=== PATIENT | male | born 1965 | race Caucasian/White ===

== ENCOUNTER → 2017-10-25 | Outpatient (REF) | payer OTHER ==
[2017-10-25 15:48] LABS: BASO % 0.5 % (0.0-1.0); EOS # 0.3 10^3/uL (0.0-0.50); EOS % 4.1 % (0.0-3.0); HEMATOCRIT 44.9 % (42.0-52.0); HEMOGLOBIN 15.2 g/dl (13.5-17.5); IMMATURE GRANULOCYTE % 0.8 % (0-3.0); LYMPH # 2.7 10^3/uL (1.5-4.5); LYMPH % 36.1 % (24.0-44.0); MEAN CORPUSCULAR HEMOGLOBIN 31.6 pg (27.0-33.0); MEAN CORPUSCULAR HGB CONC 33.9 g/dl (32.0-36.5); MEAN CORPUSCULAR VOLUME 93.3 fl (80.0-96.0); MONO # 0.5 10^3/uL (0.0-0.8); MONO % 6.9 % (0.0-5.0); NEUTROPHILS # 3.8 10^3/uL (1.8-7.7); NEUTROPHILS % 51.6 % (36.0-66.0); PLATELET COUNT, AUTOMATED 316 10^3/uL (150-450); RED BLOOD COUNT 4.81 10^6/uL (4.30-6.10); RED CELL DISTRIBUTION WIDTH 12.1 % (11.5-14.5); WHITE BLOOD COUNT 7.4 10^3/uL (4.0-10.0)
[2017-10-25 15:58] LABS: C REACTIVE PROTEIN QUANTITATIV 1.16 MG/DL (0.00-0.30)
[2017-10-25 15:58] LABS: RHEUMATOID FACTOR QUANT < 10.0 IU/ML (<15.0)
[2017-10-25 16:37] LABS: ERYTHROCYTE SEDIMENTATION RATE 7 mm/hr (0-20)
[2017-10-28 00:07] LABS: ANTINUCLEAR ANTIBODIES DIRECT Negative (Negative); Lyme Disease IgG/IgM Antibodie <0.91 ISR (0.00-0.90); Lyme Disease IgM Ab Quantitati <0.80 index (0.00-0.79)
== END ==
LOC: M LABDRAW1 13:27
DX: M25.552 Pain in left hip (principal)
CPT/HCPCS: 86140

== ENCOUNTER 2020-06-08 19:45 | Emergency (ER) | payer OTHER, BC ==
[~2020-06-08] VITALS: Ht 180.3 cm; Wt 100.0 kg
[~2020-06-08 19:45] MED LIST: BACL10TA2 PO; BENI20TA11 PO; NAPR250T PO; NEUR100C PO; NEXI20GR PO; PAXI10TA; PAXI10TA PO; TRAZ50TA PO
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
[2020-06-08] MEDS ORDERED: TRAZ1TAB14 (20:54)
[2020-06-08] MEDS ORDERED: ASPI81TA26 (20:54)
[2020-06-08] MEDS ORDERED: HYDR25TAB (20:54)
[2020-06-08] MEDS ORDERED: GLYB25TA (20:54)
[2020-06-08] MEDS ORDERED: OMEP-221 (20:54)
[2020-06-08] MEDS ORDERED: ATOR80TA59 (20:54)
[2020-06-08] MEDS ORDERED: PARO20TA3 (20:54)
[2020-06-08] MEDS ORDERED: METF10004 (20:54)
[2020-06-08] MEDS ORDERED: ISOS30TA4 (20:54)
[2020-06-08] MEDS ORDERED: PARO30TA4 (20:54)
[2020-06-08] MEDS ORDERED: INVO300T (20:54)
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
[2020-06-08] MEDS ORDERED: ACETAMINOPHEN 500 MG TAB PO ONE (23:15)
[2020-06-08] MEDS ORDERED: methocarbamoL 500 MG TAB PO ONE (23:15)
[2020-06-08 23:25] VITALS: BP 124/62
[2020-06-08] MEDS ORDERED: METH1TAB40 PO (23:28)
[2020-06-08] MEDS ORDERED: ACET-907 PO (23:28)
== END 2020-06-09 00:14 | disposition home or self-care (01) ==
LOC: M ED 19:45
DX: S23.9XXA Sprain of unspecified parts of thorax, initial encounter (principal); V49.49XA Driver injured in collision with other motor vehicles in traffic accident, initial encounter; Y92.410 Unspecified street and highway as the place of occurrence of the external cause; E11.9 Type 2 diabetes mellitus without complications; I10 Essential (primary) hypertension; Z79.899 Other long term (current) drug therapy; Z79.82 Long term (current) use of aspirin; Z79.84 Long term (current) use of oral hypoglycemic drugs

== ENCOUNTER 2024-10-17 14:52 | Emergency (ER) | payer BC, OTHER ==
[~2024-10-17] VITALS: Ht 180.3 cm; Wt 97.7 kg
[~2024-10-17 14:52] MED LIST changes: +ACET-907 PO; +ASPI81TA26; +ATOR80TA59; +GLYB2.5T7; +HYDR-3490; +INVO300T; +ISOS1TAB35; +METF10004; +METH-1164 PO; +OMEP40CA5; +PARO20TA3; +PARO30TA4; +TRAZ1TAB14
[2024-10-17] MEDS ORDERED: FARX1TAB3 (15:03)
[2024-10-17] MEDS ORDERED: AMLO1TAB24 (15:03)
[2024-10-17] MEDS ORDERED: GLYB5TAB6 (15:03)
[2024-10-17] MEDS ORDERED: SEMA7TAB2 (15:03)
[2024-10-17] MEDS ORDERED: IRBE300T25 (15:03)
[2024-10-17] MEDS ORDERED: GABA-1171 (15:03)
[2024-10-17] MEDS ORDERED: PANT40TA29 (15:03)
[2024-10-17 15:46] LABS: BASO % 0.2 % (0.0-1.0); EOS # 0.2 10^3/uL (0.0-0.5); EOS % 0.9 % (0.0-3.0); HEMOGLOBIN 16.6 g/dl (13.5-17.5); LYMPH # 2.7 10^3/uL (1.5-5.0); LYMPH % 16.5 % (24.0-44.0); MEAN CORPUSCULAR HEMOGLOBIN 31.6 pg (27.0-33.0); MEAN CORPUSCULAR HGB CONC 33.2 g/dl (32.0-36.5); MEAN CORPUSCULAR VOLUME 95.1 fl (80.0-96.0); MONO # 0.6 10^3/uL (0.0-0.8); MONO % 3.5 % (2.0-8.0); NEUTROPHILS # 12.7 10^3/uL (1.5-8.5); NEUTROPHILS % 78.5 % (36.0-66.0); PLATELET COUNT, AUTOMATED 298 10^3/uL (150-450); RED BLOOD COUNT 5.26 10^6/uL (4.30-6.10); WHITE BLOOD COUNT 16.2 10^3/uL (4.0-10.0)
[2024-10-17 16:15] LABS: ALBUMIN 4.3 G/DL (3.2-5.2); BILIRUBIN,DIRECT 0.1 MG/DL (<0.4); BILIRUBIN,TOTAL 0.4 MG/DL (0.3-1.2); CALCIUM LEVEL 9.5 MG/DL (8.5-10.1); CREATININE FOR GFR 1.15 MG/DL (0.70-1.30); GLOMERULAR FILTRATION RATE 74.2 (>56); POTASSIUM SERUM 4.1 MMOL/L (3.5-5.1)
[2024-10-17] MEDS ORDERED: ISOVUE-370 76% 100ML VIAL As Ordered ONE (16:57)
[2024-10-17 17:24] LABS: C REACTIVE PROTEIN QUANTITATIV 0.52 MG/DL (<1.0)
[2024-10-17] MEDS: ONDANSETRON 4MG 2ML VIAL IV ONE (17:45)
[2024-10-17] MEDS: NS (Normal Saline) 0.9% 1,000 ML IV ONE (17:45)
[2024-10-17] MEDS: PANTOPRAZOLE 40MG VIAL IV ONE (17:45)
[2024-10-17 20:00] VITALS: BP 121/76; TEMP 98.6; O2SAT 93
[2024-10-17] MEDS ORDERED: ONDA-282 PO (20:03)
== END 2024-10-17 20:15 | disposition home or self-care (01) ==
LOC: M ED 14:52
DX: R11.10 Vomiting, unspecified (principal); R19.7 Diarrhea, unspecified; E11.9 Type 2 diabetes mellitus without complications; I10 Essential (primary) hypertension; E78.00 Pure hypercholesterolemia, unspecified; F41.9 Anxiety disorder, unspecified; Z79.1 Long term (current) use of non-steroidal anti-inflammatories (NSAID); Z79.4 Long term (current) use of insulin; Z79.84 Long term (current) use of oral hypoglycemic drugs; Z79.899 Other long term (current) drug therapy
CPT/HCPCS: 71045; 74177; 80048; 80076; 83690; 85025; 86140; 93005; 96374; 99284; J2405; J2470; Q9967